=== PATIENT | female | born 1990 | race Caucasian/White ===

== ENCOUNTER → 2017-10-15 | Outpatient (CLI) | payer BC ==
--- NOTE | 2017-10-15 12:05 | RADIOLOGY IMAGING REPORT ---
[place] [facility] [place]: Tiffany Castillo : 1990 MR: [id number] V: [id number] EXAM DATE: ORDERING PHYSICIAN: SERENA LOU TECHNOLOGIST: Location: [facility] [place] Patient: Tiffany Castillo : 1990 Visit/Account:[id number] Date of Sevice: 10/15/2017 Technique: SHOULDER MIN 2 VIEWS LEFT HISTORY: Fall, left shoulder pain Comparison studies: None FINDINGS: There is no acute fracture. The alignment of the left shoulder is maintained. Soft tissues are unremarkable. IMPRESSION: 1. No acute osseous process. Report Dictated By: Faheem Johnson DO at 10/15/2017 11:59 AM Report E-Signed By: Faheem Johnson DO at 10/15/2017 12:00 PM WSN:[id number]
== END ==
LOC: RAD 11:21
PROVIDERS: ATTEND Physician Assistant
DX: M25.552 Pain in left hip (principal); W19.XXXA Unspecified fall, initial encounter